=== PATIENT | female | born 1980 | race Caucasian/White ===

== ENCOUNTER 2018-12-11 12:15 | Inpatient (IN) | payer OTHER ==
[~2018-12-11] VITALS: Ht 160 cm; Wt 65.8 kg
[2018-12-23] MEDS ORDERED: TYLENOL #3 PO (10:37)
== END 2018-12-23 11:05 | disposition home or self-care (01) | DRG 743 ==
LOC: O/R 12-20 08:52 → SURG 12-20 08:52 → SURH 12-20 10:30 → SURG 12-20 16:27 → SURH 12-20 17:15 → SURG 12-23 11:05
PROVIDERS: ADMIT Obstetrics & Gynecology
PROC: 0UT10ZZ Resection of Left Ovary, Open Approach (ICD-10-PCS; 2018-12-20)
PROC: 0DNW0ZZ Release Peritoneum, Open Approach (ICD-10-PCS; 2018-12-20)
PROC: 0TJB8ZZ Inspection of Bladder, Via Natural or Artificial Opening Endoscopic (ICD-10-PCS; 2018-12-20)
PROC: 0UT90ZZ Resection of Uterus, Open Approach (ICD-10-PCS; principal; 2018-12-20 17:15)
DX: D25.1 Intramural leiomyoma of uterus (principal); R59.0 Localized enlarged lymph nodes; N73.6 Female pelvic peritoneal adhesions (postinfective); D25.0 Submucous leiomyoma of uterus; D25.2 Subserosal leiomyoma of uterus; N83.12 Corpus luteum cyst of left ovary